=== PATIENT | male | born 1975 | race Caucasian/White ===

== ENCOUNTER 2017-04-19 04:05 | Emergency (ER) | payer BC, OTHER ==
[~2017-04-19] VITALS: Ht 182.9 cm; Wt 108.9 kg
[~2017-04-19 04:05] MED LIST: COR6.25 PO; FLUO40CA8 PO; METO50TA3 PO; MONT10TA22 PO
[2017-04-19 04:20] VITALS: BP_SYST 145
[2017-04-19] MEDS ORDERED: DIPHENHYDRAMINE INJ 50 MG/ML VIAL IM ONE (05:00)
[2017-04-19] MEDS ORDERED: MORPHINE SULFATE 10 MG/ML VIAL IM ONE (05:00)
[2017-04-19 05:25] VITALS: BP_SYST 152
== END 2017-04-19 05:25 | disposition home or self-care (01) ==
LOC: SED 04:05
DX: S39.012A Strain of muscle, fascia and tendon of lower back, initial encounter (principal); I10 Essential (primary) hypertension; K21.9 Gastro-esophageal reflux disease without esophagitis; X58.XXXA Exposure to other specified factors, initial encounter; Y93.89 Activity, other specified; Y92.89 Other specified places as the place of occurrence of the external cause; Y99.8 Other external cause status
CPT/HCPCS: 96372; 99284; J1200; J2270

== ENCOUNTER 2019-06-28 11:44 | Emergency (ER) | payer BC, OTHER ==
[~2019-06-28] VITALS: Ht 182.9 cm; Wt 149.7 kg
[~2019-06-28 11:44] MED LIST changes: +METO50TA16 PO; -METO50TA3 PO
--- NOTE | 2019-06-28 11:47 | NUR ---
Pt placed in bed 8
[2019-06-28 11:49] VITALS: BP_SYST 164
--- NOTE | 2019-06-28 12:24 | NUR ---
DR TORRES AT BEDSIDE FOR EVALUATION
[2019-06-28 12:34] VITALS: BP_SYST 140
--- NOTE | 2019-06-28 12:34 | NUR ---
Patient given written and verbal discharge instructions and verbalizes understanding. ER MD discussed with patient the results and treatment provided. Patient in stable condition. ID arm band removed. Rx of norco given. Patient educated on pain management and to follow up with PMD. Pain Scale 6. Dr Dagmar contreras, pt sent home with prescription for pain medication. Opportunity for questions provided and answered. Medication side effect fact sheet provided.
== END 2019-06-28 12:34 | disposition home or self-care (01) ==
LOC: SED 11:44
DX: G89.29 Other chronic pain (principal); M54.5 Low back pain; K21.9 Gastro-esophageal reflux disease without esophagitis; I10 Essential (primary) hypertension; Z79.899 Other long term (current) drug therapy
CPT/HCPCS: 99283

== ENCOUNTER 2019-07-16 04:35 | Emergency (ER) | payer BC ==
[~2019-07-16] VITALS: Ht 182.9 cm; Wt 140.6 kg
[2019-07-16 04:49] VITALS: BP_SYST 154
[2019-07-16] MEDS ORDERED: ASPIRIN 81 MG TAB.CHEW PO ONE (05:00)
[2019-07-16] MEDS ORDERED: ONDANSETRON HCL 4 MG/2 ML VIAL IVP ONE (05:00)
[2019-07-16] MEDS ORDERED: MORPHINE 2 MG/ML INJ. SYRINGE IVP ONE (05:00)
[2019-07-16] MEDS ORDERED: NS 500 ML IV ONE ×2 (05:00→08:45)
[2019-07-16 05:52] LABS: BASOPHILS % (AUTO) 0.5 % (0.0-2.0); EOSINOPHILS % (AUTO) 0.6 % (0.0-4.0); HEMATOCRIT 40.3 % (36-54); HEMOGLOBIN 13.7 g/dL (14.0-18.0); LYMPHOCYTES # (AUTO) 0.9 K/uL (1.0-5.5); LYMPHOCYTES % (AUTO) 13.5 % (20.5-51.5); MEAN CORPUSCULAR HEMOGLOBIN 32 pg (27-31); MEAN CORPUSCULAR HGB CONC 34 % (32-36); MEAN CORPUSCULAR VOLUME 95 fL (79.0-98.0); MONOCYTES # (AUTO) 0.4 K/uL (0.0-1.0); MONOCYTES % (AUTO) 6.8 % (1.7-9.3); NEUTROPHILS % (AUTO) 78.6 % (40.0-70.0); PLATELET COUNT (AUTO) 159 K/uL (130-430); RED BLOOD CELL COUNT(AUTO) 4.24 MIL/uL (4.2-6.2); RED CELL DISTRIBUTION WIDTH 13.4 % (9.0-15.0); WHITE BLOOD COUNT (AUTO) 6.4 K/uL (4.8-10.8)
[2019-07-16 06:14] LABS: CALCIUM 9.2 mg/dL (8.4-11.0); CREATININE 1.07 mg/dL (0.55-1.30); POTASSIUM 4.1 mmol/L (3.5-5.1)
[2019-07-16 06:25] LABS: ALBUMIN 3.6 g/dL (3.4-4.8); TOTAL BILIRUBIN 0.5 mg/dL (0.0-1.0)
[2019-07-16] MEDS ORDERED: IOHEXOL 350 mgI/mL, 150 ML INFUS..BTL IV ONE (08:30)
[2019-07-16] MEDS ORDERED: LORazepam 2 MG/ML VIAL IVP ONE (08:45)
[2019-07-16 10:09] VITALS: BP_SYST 120
== END 2019-07-16 10:07 | disposition home or self-care (01) ==
LOC: SED 04:35
DX: R07.89 Other chest pain (principal); R11.10 Vomiting, unspecified; F10.20 Alcohol dependence, uncomplicated; R79.1 Abnormal coagulation profile; K21.9 Gastro-esophageal reflux disease without esophagitis; I10 Essential (primary) hypertension; Z86.79 Personal history of other diseases of the circulatory system; Z79.899 Other long term (current) drug therapy
CPT/HCPCS: 36415; 71045; 80053; 83880; 84484; 85025; 85379; 85610; 85730; 93005; 96361; 96374; 96375; 99284; G0482; J2060; J2270; J2405; J7040; Q9967

== ENCOUNTER 2022-07-24 07:03 | Emergency (ER) | payer BC, OTHER ==
[~2022-07-24] VITALS: Ht 182.9 cm; Wt 181.4 kg
[2022-07-24 07:10] VITALS: BP_SYST 130
--- NOTE | 2022-07-24 07:39 | NUR ---
Pt coming from home ambulatory with steady gait using a cane. Pt c/o left calf/knee pain 08/09. States he went to urgent care 2 weeks ago and was diagnosed with a torn miniscus. No trauma pt states pain happened abruptly. Pt states he was given corticosteroids shots but states the pain has not subsided. Pt is A&Ox4. Skin intact. No chest pain and no sob. Denies n/v. Bed in lowest position.
--- NOTE | 2022-07-24 07:45 | NUR ---
GARRETT Moses at bedside examining patient.
[2022-07-24] MEDS ORDERED: MORPHINE 4 MG INJ. 4 MG/ML VIAL IM ONE (08:00)
[2022-07-24] MEDS ORDERED: MORPHINE SULFATE 10 MG/ML VIAL IVP ONE (08:15)
--- NOTE | 2022-07-24 08:23 | NUR ---
Sigifredo bandage placed on left calf. Pt has no c/o.
--- NOTE | 2022-07-24 08:44 | NUR ---
Patient given written and verbal discharge instructions and verbalizes understanding. ER MD discussed with patient the results and treatment provided. Patient in stable condition. ID arm band removed. Patient educated on pain management and to follow up with PMD. Pain Scale 0/10. Opportunity for questions provided and answered. Medication side effect fact sheet provided.
[2022-07-24 08:45] VITALS: BP_SYST 130
== END 2022-07-25 08:45 | disposition home or self-care (01) ==
LOC: SED 07:03
DX: S86.812A Strain of other muscle(s) and tendon(s) at lower leg level, left leg, initial encounter (principal); K21.9 Gastro-esophageal reflux disease without esophagitis; I10 Essential (primary) hypertension; F10.129 Alcohol abuse with intoxication, unspecified; Z79.899 Other long term (current) drug therapy; X58.XXXA Exposure to other specified factors, initial encounter; Y93.89 Activity, other specified; Y92.89 Other specified places as the place of occurrence of the external cause; Y99.8 Other external cause status; Y90.6 Blood alcohol level of 120-199 mg/100 ml
CPT/HCPCS: 99283; 96372; J2270

== ENCOUNTER 2022-12-11 07:33 | Emergency (ER) | payer OTHER ==
[~2022-12-11] VITALS: Ht 182.9 cm; Wt 174.6 kg
[2022-12-11 07:35] VITALS: BP_SYST 146
--- NOTE | 2022-12-11 07:35 | NUR ---
BROUGHT BACK TO BED IN HALLWAY AND TRIAGED. REPORT GIVEN TO NADEEN
[2022-12-11] MEDS ORDERED: LIDOCAINE 1% 10 MG/ML, 50 ML MDV INJ ONE (08:00)
[2022-12-11] MEDS ORDERED: methylPREDNISolone SOD SUCC/PF 62.5 MG/ML VIAL IVP ONE (08:00)
--- NOTE | 2022-12-11 08:00 | NUR ---
Pt presents to emergency department with acute exacerbation of chronic left knee pain. Patient states that last May he saw an orthopedist who diagnosed him with a torn meniscus. He is in the process of getting bariatric surgery to lose weight in order to have the required surgery on his left knee. Today he comes in with moderate severe left knee pain which is affecting his ability to ambulate. He is requesting pain management until next when his next orthopedic appointment scheduled. Patient is a 47-year-old male with history of 2 prior back surgeries, metabolic syndrome including hyperlipidemia, diabetes, and hypertension, who
[2022-12-11] MEDS ORDERED: LIDOCAINE 1%, 20 ML MDV 40 ML ONE (08:17)
[2022-12-11] MEDS ORDERED: MORPHINE 4 MG INJ. 4 MG/ML VIAL IM ONE (08:45)
--- NOTE | 2022-12-11 09:10 | NUR ---
Patient given written and verbal discharge instructions and verbalizes understanding. ER MD discussed with patient the results and treatment provided. Patient in stable condition. ID arm band removed. Opportunity for questions provided and answered.
[2022-12-11 16:23] VITALS: BP_SYST 146
== END 2022-12-11 09:10 | disposition home or self-care (01) ==
LOC: SED 07:33
DX: M19.09 Primary osteoarthritis, other specified site (principal); K21.9 Gastro-esophageal reflux disease without esophagitis; I10 Essential (primary) hypertension; Z79.899 Other long term (current) drug therapy
CPT/HCPCS: 99284; 96372; J2001; J2930; J2270

== ENCOUNTER 2023-01-11 03:29 | Emergency (ER) | payer OTHER ==
[~2023-01-11] VITALS: Ht 182.9 cm; Wt 176.9 kg
[~2023-01-11 03:29] MED LIST changes: +MONT-47 PO; -MONT10TA22 PO
--- NOTE | 2023-01-11 03:41 | NUR ---
Triaged and placed IN er cHAIR 1 for evaluation. VSS, no acute respiratory distress at this time. Instructed to notify ED staff for any changes in condition or worsening of symptoms. Patient verbalized understanding.
[2023-01-11] MEDS ORDERED: ONDANSETRON HCL 4 MG/2 ML VIAL IVP ONE (04:15)
[2023-01-11] MEDS ORDERED: NACL 0.9% 1,000 ML IV ONE (04:15)
[2023-01-11] MEDS ORDERED: MORPHINE 4 MG INJ. 4 MG/ML VIAL IVP ONE ×2 (04:15→05:45)
[2023-01-11] MEDS ORDERED: MAG HYDROX/AL HYDROX/SIMETH 30 ML, DICYCLOMINE HCL 20 MG, LIDOCAINE VISCOUS 2% 15ML (PO... PO ONE ×3 (04:15)
[2023-01-11 05:49] LABS: BASOPHILS % (AUTO) 0.5 % (0.0-2.0); EOSINOPHILS # (AUTO) 0.1 K/uL (0.0-0.4); EOSINOPHILS % (AUTO) 1.1 % (0.0-4.0); HEMATOCRIT 43.7 % (36-54); HEMOGLOBIN 14.7 g/dL (14.0-18.0); LYMPHOCYTES # (AUTO) 0.7 K/uL (1.0-5.5); MEAN CORPUSCULAR HEMOGLOBIN 35 pg (27-31); MEAN CORPUSCULAR HGB CONC 34 % (32-36); MEAN CORPUSCULAR VOLUME 102 fL (79.0-98.0); MONOCYTES # (AUTO) 0.5 K/uL (0.0-1.0); MONOCYTES % (AUTO) 7.8 % (1.7-9.3); NEUTROPHILS # (AUTO) 5.2 K/uL (1.8-7.7); NEUTROPHILS % (AUTO) 79.6 % (40.0-70.0); PLATELET COUNT (AUTO) 173 K/uL (130-430); RED BLOOD CELL COUNT(AUTO) 4.27 MIL/uL (4.2-6.2); RED CELL DISTRIBUTION WIDTH 14.7 % (9.0-15.0); WHITE BLOOD COUNT (AUTO) 6.6 K/uL (4.8-10.8)
[2023-01-11 06:00] LABS: CALCIUM 8.5 mg/dL (8.4-11.0); CREATININE 1.08 mg/dL (0.55-1.30)
[2023-01-11 06:04] LABS: ALBUMIN 3.1 g/dL (3.4-4.8); TOTAL BILIRUBIN 0.5 mg/dL (0.0-1.0)
--- NOTE | 2023-01-11 07:28 | NUR ---
ENDORSED PT TO [facility]
--- NOTE | 2023-01-11 07:40 | NUR ---
Patient given written and verbal discharge instructions and verbalizes understanding. ER MD discussed with patient the results and treatment provided. Patient in stable condition. ID arm band removed. IV catheter removed intact and dressing applied, no active bleeding. Patient educated on pain management and to follow up with PMD. Pain Scale . Opportunity for questions provided and answered. Medication side effect fact sheet provided.
[2023-01-11 08:05] VITALS: BP_SYST 134
== END 2023-01-11 07:40 | disposition home or self-care (01) ==
LOC: SED 03:29
DX: R10.13 Epigastric pain (principal); K21.9 Gastro-esophageal reflux disease without esophagitis; I10 Essential (primary) hypertension; Z88.5 Allergy status to narcotic agent; Z88.6 Allergy status to analgesic agent; Z88.8 Allergy status to other drugs, medicaments and biological substances; Z79.899 Other long term (current) drug therapy
CPT/HCPCS: 99285; 74176; 96374; 96361; 96375; 80053; 83690; 85025; 36415; 93005; 76376; 96376; J2001; J2405; J2270; J7030

== ENCOUNTER 2023-02-05 02:27 | Emergency (ER) | payer OTHER ==
[~2023-02-05] VITALS: Ht 182.9 cm; Wt 172.4 kg
[2023-02-05 02:27] VITALS: BP_SYST 138
[2023-02-05] MEDS ORDERED: MORPHINE 4 MG INJ. 4 MG/ML VIAL IM ONE (03:00)
[2023-02-05] MEDS ORDERED: HYDR-3927 PO (03:01)
[2023-02-05 03:21] VITALS: BP_SYST 138
== END 2023-02-05 03:21 | disposition home or self-care (01) ==
LOC: SED 02:27
DX: M54.50 Low back pain, unspecified (principal); R22.41 Localized swelling, mass and lump, right lower limb; K21.9 Gastro-esophageal reflux disease without esophagitis; I10 Essential (primary) hypertension; Z88.5 Allergy status to narcotic agent; Z88.6 Allergy status to analgesic agent; Z88.8 Allergy status to other drugs, medicaments and biological substances; Z79.899 Other long term (current) drug therapy
CPT/HCPCS: 99283; 96372; J2270

== ENCOUNTER 2023-02-07 05:18 | Inpatient (IN) | payer OTHER ==
[~2023-02-07] VITALS: Ht 182.9 cm; Wt 172.4 kg
[~2023-02-07 05:18] MED LIST changes: +HYDR-3927 PO
[2023-02-07 05:23] VITALS: BP_SYST 128
[2023-02-07] MEDS ORDERED: MORPHINE 4 MG INJ. 4 MG/ML VIAL IVP ONE (06:00)
--- NOTE | 2023-02-07 06:00 | NUR ---
Pt is noted alert, responsivre as he came in C/O chest pain. Pt care continue as awaits MD orders as IV # 20g Inserted.
[2023-02-07] MEDS ORDERED: NITROGLYCERIN 1 INCH (GM) OINT. TP ONE (06:03)
[2023-02-07] MEDS ORDERED: LORazepam 2 MG/ML VIAL IVP ONE (06:15)
[2023-02-07] MEDS ORDERED: MORPHINE 2 MG/ML INJ. SYRINGE ONE (06:18)
--- NOTE | 2023-02-07 06:25 | NUR ---
Pt is monitor closely as she is been mediacted with Morphine 4mg IVP, Ativan 2ng IVP and Nitropaste 1inch Topical. Pt care continue.
[2023-02-07 06:30] LABS: BASOPHILS % (AUTO) 0.3 % (0.0-2.0); EOSINOPHILS # (AUTO) 0.1 K/uL (0.0-0.4); EOSINOPHILS % (AUTO) 1.3 % (0.0-4.0); HEMATOCRIT 43.6 % (36-54); HEMOGLOBIN 14.9 g/dL (14.0-18.0); LYMPHOCYTES # (AUTO) 0.5 K/uL (1.0-5.5); LYMPHOCYTES % (AUTO) 7.6 % (20.5-51.5); MEAN CORPUSCULAR HEMOGLOBIN 35 pg (27-31); MEAN CORPUSCULAR HGB CONC 34 % (32-36); MEAN CORPUSCULAR VOLUME 102 fL (79.0-98.0); MONOCYTES # (AUTO) 0.5 K/uL (0.0-1.0); MONOCYTES % (AUTO) 7.7 % (1.7-9.3); NEUTROPHILS # (AUTO) 5.7 K/uL (1.8-7.7); NEUTROPHILS % (AUTO) 83.1 % (40.0-70.0); PLATELET COUNT (AUTO) 154 K/uL (130-430); RED BLOOD CELL COUNT(AUTO) 4.27 MIL/uL (4.2-6.2); RED CELL DISTRIBUTION WIDTH 14.5 % (9.0-15.0); WHITE BLOOD COUNT (AUTO) 6.9 K/uL (4.8-10.8)
[2023-02-07 06:39] LABS: CALCIUM 8.9 mg/dL (8.4-11.0); CREATININE 1.01 mg/dL (0.55-1.30)
[2023-02-07 06:44] LABS: ALBUMIN 3.4 g/dL (3.4-4.8); TOTAL BILIRUBIN 0.9 mg/dL (0.0-1.0)
[2023-02-07] MEDS ORDERED: ASPIRIN 81 MG TAB.CHEW PO ONE (06:45)
--- NOTE | 2023-02-07 07:11 | NUR ---
Pt care continue as report is given to the AM receving RN.
[2023-02-07] MEDS ORDERED: CLON0.2T PO (07:33)
[2023-02-07] MEDS ORDERED: DILT120C89 PO (07:33)
[2023-02-07] MEDS ORDERED: FURO-150 PO (07:33)
[2023-02-07] MEDS ORDERED: ARIP10TA9 PO (07:33)
--- NOTE | 2023-02-07 07:33 | NUR ---
Medication reconciliation completed with information provided by PT STATES THESE ARE HIS MEDS. Any prior medication reconciliation on file was reviewed and corrected.
--- NOTE | 2023-02-07 07:35 | NUR ---
Pt A&Ox4 at this time, respirations are even and unlabored,cap refill <3, will cont to monitor.
--- NOTE | 2023-02-07 08:23 | NUR ---
ULTRASOUND BEING PERFORMED AT BEDSIDE
--- NOTE | 2023-02-07 08:47 | NUR ---
Pt A&Ox4, VSS, respirations even and unlabored
[2023-02-07] MEDS ORDERED: METOPROLOL SUCCINATE 25 MG TAB.SR.24H (TOPROL XL) PO ONE (09:30)
[2023-02-07] MEDS ORDERED: ONDANSETRON HCL 4 MG/2 ML VIAL IVP PRN (09:30)
[2023-02-07] MEDS ORDERED: HYDROmorphone 1 MG/ML INJ. CARTRIDGE IVP PRN (09:30)
--- NOTE | 2023-02-07 09:43 | NUR ---
Admit bed requested Patient will be admitted to care of Dr Flores.. Admitted to Tele unit. Diagnosis chest pain Inpatient (Yes or No) yes Observation (Yes or No) No Orientation concerns or request close to nursing station (Yes or No) No Covid Status negative On vent or bipap n/a Isolation requirements n/a Needs a sitter n/a From Home (Yes or if No enter name of facility)yes Requires Dialysis (Yes or No) No Med Rec Completed (Yes of No) yes
[2023-02-07] MEDS ORDERED: PANTOPRAZOLE SODIUM 40 MG/VIAL (PROTONIX) IVP ONE (09:45)
[2023-02-07 10:47] LABS: ALBUMIN 3.3 g/dL (3.4-4.8); BILIRUBIN,DIRECT 0.2 mg/dL (0.0-0.3); TOTAL BILIRUBIN 0.8 mg/dL (0.0-1.0)
[2023-02-07 12:30] VITALS: BP_SYST 116
--- NOTE | 2023-02-07 12:33 | NUR ---
Patient will be admitted to care of Dr Flores. Admitted to Tele unit. Will go to room 102B. Belongings list completed. Complete and up to date summary report printed. SBAR report to be given at bedside with opportunity for questions.
--- NOTE | 2023-02-07 12:35 | NUR ---
Admit to unit. Patient is Aox4. Ambulatory. No ss of distress noted. Breathing is even and nonlabored, on 2 L O2 via NC. Patient stated felt SOB, especially after ambulating or moving. Patient stated chest discomfort/ chest pain. Pain medication was administered in ER prior to arrival to unit. Patient states chest pain/ discomfort slightly better. Vital signs obtained, as documented. IV patent. Patient oriented to room and call light use. bed is locked, alarm on, and at lowest position. call light within reach.
[2023-02-07 12:36] VITALS: BP_SYST 116
--- NOTE | 2023-02-07 13:55 | NUR ---
patient left unit for CT
--- NOTE | 2023-02-07 14:15 | NUR ---
Notes Patient back from CT.
[2023-02-07] MEDS ORDERED: ACETAMINOPHEN 500 MG TABLET PO PRN ×2 (14:30→14:45)
[2023-02-07 16:00] VITALS: BP_SYST 123
--- NOTE | 2023-02-07 16:33 | NUR ---
Notes Patient is resting, no ss of distress noted. Patient denies SOB. Denies Pain. breathing is even and nonlabored, on room air, at this time. SPo2 at 95%, RA. All safety precautions in place and call light within reach.
[2023-02-07 18:02] LABS: LIPASE 92 U/L (73-393)
--- NOTE | 2023-02-07 18:39 | NUR ---
AMA: Patient does not wish to proceed with medical care recommended by Dr. Flores. Patient given information related to possible complications, up to and including , which could occur as a result of leaving hospital at this time. Patient verbalizes understanding of risks involved leaving against medical advice. Patient has signed AMA form. IV removed. No active bleeding. Dressing clean, dry, and intact. ID wrist band removed. Paged Dr. Flores. Dr. Hamilton on, call. MD Hamilton made aware. Security called. Patient left with all belongings home. with patient.
[2023-02-08] MEDS ORDERED: PANTOPRAZOLE SODIUM 40 MG/VIAL (PROTONIX) IVP SCH (09:00)
[2023-02-08] MEDS ORDERED: METOPROLOL SUCCINATE 25 MG TAB.SR.24H (TOPROL XL) PO SCH (09:00)
== END 2023-02-07 18:36 | disposition left against medical advice (07) | DRG 313 ==
LOC: SED 05:18 → STU 09:32
PROVIDERS: ADMIT Specialist; ATTEND Specialist
DX: R07.89 Other chest pain (principal); Z68.43 Body mass index [BMI] 50.0-59.9, adult; I10 Essential (primary) hypertension; Z20.822 Contact with and (suspected) exposure to COVID-19; E66.01 Morbid (severe) obesity due to excess calories; F32.A Depression, unspecified; F43.10 Post-traumatic stress disorder, unspecified; G89.4 Chronic pain syndrome; F41.9 Anxiety disorder, unspecified; R10.9 Unspecified abdominal pain; Z53.29 Procedure and treatment not carried out because of patient's decision for other reasons; K80.20 Calculus of gallbladder without cholecystitis without obstruction; Z88.8 Allergy status to other drugs, medicaments and biological substances; Z79.899 Other long term (current) drug therapy
CPT/HCPCS: 36415; 71045; 76376; 76705; 80053; 80076; 83690; 83880; 84484; 85025; 85379; 93306; 93970; 96374; 96375; 99285; C9113; G0378; J1170; J2060; J2270; J2405; Q9967

== ENCOUNTER 2023-02-21 01:59 | Emergency (ER) | payer OTHER ==
[~2023-02-21] VITALS: Ht 182.9 cm; Wt 176.9 kg
[~2023-02-21 01:59] MED LIST changes: +ARIP10TA9 PO; +CLON0.2T PO; -COR6.25 PO; +DILT120C89 PO; +FURO-150 PO; -HYDR-3927 PO; -MONT-47 PO
[2023-02-21 02:33] VITALS: BP_SYST 122
[2023-02-21] MEDS ORDERED: ONDANSETRON 4 MG ODT TAB PO ONE (02:45)
[2023-02-21] MEDS ORDERED: MORPHINE 4 MG INJ. 4 MG/ML VIAL IM ONE (02:45)
[2023-02-21] MEDS ORDERED: OXYC-128 PO (02:57)
[2023-02-21 04:00] VITALS: BP_SYST 125
== END 2023-02-21 04:00 | disposition home or self-care (01) ==
LOC: SED 01:59
DX: M54.50 Low back pain, unspecified (principal); G89.29 Other chronic pain; K21.9 Gastro-esophageal reflux disease without esophagitis; I10 Essential (primary) hypertension; Z88.5 Allergy status to narcotic agent; Z88.6 Allergy status to analgesic agent; Z88.8 Allergy status to other drugs, medicaments and biological substances; Z79.899 Other long term (current) drug therapy
CPT/HCPCS: 99284; 96365; Q0162; J2270

== ENCOUNTER 2023-04-10 08:25 | Emergency (ER) | payer OTHER ==
[~2023-04-10] VITALS: Ht 182.9 cm; Wt 170.1 kg
[~2023-04-10 08:25] MED LIST changes: +OXYC-128 PO
[2023-04-10 08:47] VITALS: BP_SYST 104
--- NOTE | 2023-04-10 08:55 | NUR ---
Patient to ER bed 5 to gown for evaluation. Side rails up. Report given to LYLA SIEGEL.
--- NOTE | 2023-04-10 09:08 | NUR ---
PT BIB AWAKE AND ALERT AOX4, NO SOB OR DISTRESS. PT C/O NOT BEING ABLE TO SLEEP FOR PAST X5 DAYS. PT ALSO C/O PAIN TO R KNEE, AND STATED HE WAS TO HAVE KNEE SX SOON. PT HAS HX OF HTN, AND BACK PAIN. PT DENIES N/V/D. PT STATES PAIN TO KNEE IS 7/10.
--- NOTE | 2023-04-10 09:10 | NUR ---
MD DR THOMAS AT BEDSIDE
[2023-04-10] MEDS ORDERED: ALPRAZolam 0.25 MG TABLET PO ONE (09:15)
[2023-04-10] MEDS ORDERED: ALPR0.5T PO (10:05)
[2023-04-10 10:17] VITALS: BP_SYST 98
--- NOTE | 2023-04-10 10:18 | NUR ---
Patient given written and verbal discharge instructions and verbalizes understanding. ER MD DR THOMAS discussed with patient the results and treatment provided. Patient in stable condition. ID arm band removed. Rx of XANAX given. Patient educated on pain management and to follow up with PMD. Pain Scale . Opportunity for questions provided and answered. Medication side effect fact sheet provided.
== END 2023-04-10 10:18 | disposition home or self-care (01) ==
LOC: SED 08:25
DX: G47.00 Insomnia, unspecified (principal); K21.9 Gastro-esophageal reflux disease without esophagitis; I10 Essential (primary) hypertension; Z88.5 Allergy status to narcotic agent; Z88.6 Allergy status to analgesic agent; Z88.8 Allergy status to other drugs, medicaments and biological substances; Z79.899 Other long term (current) drug therapy
CPT/HCPCS: 99283

== ENCOUNTER 2023-04-20 03:34 | Emergency (ER) | payer OTHER ==
[~2023-04-20] VITALS: Ht 182.9 cm; Wt 167.8 kg
[~2023-04-20 03:34] MED LIST changes: +ALPR0.5T PO
[2023-04-20 03:38] VITALS: BP_SYST 142
[2023-04-20] MEDS ORDERED: LORA-259 PO (04:03)
[2023-04-20 04:10] VITALS: BP_SYST 142
== END 2023-04-20 04:10 | disposition home or self-care (01) ==
LOC: SED 03:34
DX: G47.00 Insomnia, unspecified (principal); K21.9 Gastro-esophageal reflux disease without esophagitis; I10 Essential (primary) hypertension; Z88.6 Allergy status to analgesic agent; Z88.8 Allergy status to other drugs, medicaments and biological substances; Z79.899 Other long term (current) drug therapy
CPT/HCPCS: 99283